=== PATIENT | female | born 2000 | race African-American/Black ===

== ENCOUNTER 2023-07-08 09:56 | Emergency (ER) | payer OTHER ==
[2023-07-08 11:01] LABS: SARS-CoV-2 NAA Rapid Test Not Detected (NotDetected)
== END 2023-07-08 11:25 | disposition home or self-care (01) ==
LOC: CSHERS 09:56
DX: J20.9 Acute bronchitis, unspecified (principal); Z20.822 Contact with and (suspected) exposure to COVID-19
CPT/HCPCS: 99283

== ENCOUNTER 2023-08-12 12:06 | Emergency (ER) | payer BC, OTHER ==
[~2023-08-12 12:06] MED LIST: Iopamidol 300 61% 100 ML VIAL FS ONE
[2023-08-12 13:11] LABS: #Eosinphils 0.1 10x3/uL (0.0-0.5); #Monocytes 0.7 10x3/uL (0.0-1.1); #Neutrophils 3.9 10x3/uL (1.5-8.4); %Basophils 0.2 % (0.0-2.0); %Eosinophils 1.6 % (0.0-6.0); %Lymphocytes 18.2 % (18.0-47.0); %Monocytes 11.4 % (0.0-10.0); %Neutrophils 68.4 % (40.0-75.0); Hematocrit 36.1 % (34.9-44.5); Hemoglobin 11.1 g/dL (12.0-15.5); Mean Corpuscular HGB CONC 30.7 g/dL (32.0-36.0); Mean Corpuscular Hemoglobin 25.9 pg (27.0-33.0); Mean Corpuscular Volume 84.1 fl (81.6-98.3); Mean Platelet Volume 12.1 fl (7.4-10.4); Platelet Count 240 10x3/uL (150-450); RBC Distribution Width 17.8 % (11.5-14.5); Red Blood Cell (RBC) Count 4.29 10x6/uL (3.90-5.03); White Blood Cell (WBC) Count 5.7 10x3/uL (3.5-10.5)
[2023-08-12 13:40] LABS: ALT (SGPT) 8 U/L (8-55); AST (SGOT) 12 U/L (5-34); Albumin 4.2 g/dL (3.5-5.0); Alkaline Phosphatase 55 U/L (40-110); Anion Gap 14 mmol/L (10-20); BUN (Urea Nitrogen) 13 mg/dL (7.0-18.7); Bilirubin, Total 0.5 mg/dL (0.2-1.2); Calc. Creatinine Clearance 0 mL/min (70-130); Calcium 9.3 mg/dL (7.8-10.44); Carbon Dioxide 24 mmol/L (22-29); Chloride 106 mmol/L (98-107); Estimated GFR 117; Globulin 3.1 g/dL (2.4-3.5); Glucose 91 mg/dL (70-105); Lipase 24 U/L (8-78); Potassium 3.5 mmol/L (3.5-5.1); Protein, Total 7.3 g/dL (6.0-8.3); Sodium 140 mmol/L (136-145)
[2023-08-12] MEDS ORDERED: Ketorolac Tromethamine 30 MG/ML VIAL ONE (13:41)
[2023-08-12] MEDS ORDERED: Ondansetron PF 4 MG/2 ML Vial ONE ×2 (13:41→21:23)
[2023-08-12 14:23] LABS: Bilirubin Neg (Negative); Blood, Urine Negative (Negative); Clarity Clear (Clear); Glucose, Urine (Dipstick) Normal (Negative); Ketone, Urine 50 mg/dL (Negative); Leukocyte Negative (Negative); Nitrite Negative (Negative); Protein, Urine (Dipstick) 15 mg/dl (Neg-Trace); Urobilinogen Normal mg/dL (Less than 2)
[2023-08-12 14:24] LABS: Pregnancy Test - Urine (BHCG) Negative (Negative); Pregu Control Background? CLEAR/WHITE (CLR/WHITE); Pregu Control Bar Appear? YES (CONTROL BAR)
[2023-08-12 15:36] LABS: Bacteria/HPF None Seen HPF (None Seen); CAUTI Indications for Culture Pelvic or flank pain; RBC/HPF None Seen HPF (0-3); Squamous Epithelial 0-3 HPF (0-3); WBC/HPF None Seen HPF (0-3)
[2023-08-12 15:37] LABS: Urine Culture Reflex No No
[2023-08-12] MEDS ORDERED: Morphine 2 MG/ML VIAL ONE (16:47)
[2023-08-12] MEDS ORDERED: Morphine 4 MG/ML VIAL ONE (20:10)
[2023-08-12 20:41] LABS: Hematocrit 32.8 % (34.9-44.5); Hemoglobin 10.2 g/dL (12.0-15.5)
== END 2023-08-12 21:25 | disposition home or self-care (01) ==
LOC: CSHERS 12:06
DX: N83.291 Other ovarian cyst, right side (principal)
CPT/HCPCS: 36415; 74177; 76856; 80053; 81001; 81025; 83690; 85025; 96374; 96375; 96376; J1885; J2270; J2272; J2405; Q9967

== ENCOUNTER 2023-08-15 04:57 | Inpatient (IN) | payer BC, OTHER ==
[2023-08-15] MEDS ORDERED: Morphine 4 MG/ML VIAL ONE (06:08)
[2023-08-15] MEDS ORDERED: Ondansetron PF 4 MG/2 ML Vial ONE (06:09)
[2023-08-15 06:26] LABS: #Eosinphils 0.1 10x3/uL (0.0-0.5); #Monocytes 0.6 10x3/uL (0.0-1.1); #Neutrophils 4.7 10x3/uL (1.5-8.4); %Basophils 0.3 % (0.0-2.0); %Eosinophils 1.9 % (0.0-6.0); %Lymphocytes 23.7 % (18.0-47.0); %Monocytes 7.9 % (0.0-10.0); %Neutrophils 66.1 % (40.0-75.0); Hematocrit 33.6 % (34.9-44.5); Hemoglobin 10.5 g/dL (12.0-15.5); Mean Corpuscular HGB CONC 31.3 g/dL (32.0-36.0); Mean Corpuscular Hemoglobin 25.7 pg (27.0-33.0); Mean Corpuscular Volume 82.4 fl (81.6-98.3); Mean Platelet Volume 11.9 fl (7.4-10.4); Platelet Count 238 10x3/uL (150-450); RBC Distribution Width 17.2 % (11.5-14.5); Red Blood Cell (RBC) Count 4.08 10x6/uL (3.90-5.03); White Blood Cell (WBC) Count 7.2 10x3/uL (3.5-10.5)
[2023-08-15 06:30] LABS: ALT (SGPT) 9 U/L (8-55); AST (SGOT) 11 U/L (5-34); Alkaline Phosphatase 51 U/L (40-110); Anion Gap 14 mmol/L (10-20); BUN (Urea Nitrogen) 11 mg/dL (7.0-18.7); Bilirubin, Total 0.3 mg/dL (0.2-1.2); Calc. Creatinine Clearance 0 mL/min (70-130); Calcium 9.3 mg/dL (7.8-10.44); Carbon Dioxide 24 mmol/L (22-29); Chloride 106 mmol/L (98-107); Estimated GFR 117; Glucose 110 mg/dL (70-105); Lipase 18 U/L (8-78); Potassium 3.8 mmol/L (3.5-5.1); Sodium 140 mmol/L (136-145)
[2023-08-15] MEDS ORDERED: Famotidine/PF 20 mg/2ml Vial ONE (07:11)
[2023-08-15] MEDS ORDERED: Ketorolac Tromethamine 30 MG/ML VIAL ONE (07:11)
[2023-08-15] MEDS ORDERED: Lidocaine 2% Viscous Solution 10 ML, Aluminum & Magnesium Hydroxide 30 ML SSW SCH (08:00)
[2023-08-15] MEDS ORDERED: fentaNYL 50 mcg/mL 1 mL Vial ONE ×2 (08:51→12:00)
[2023-08-15 09:20] LABS: BHCG - Serum Negative (NEGATIVE); Pregs Control Background? CLEAR/WHITE (CLR/WHITE); Pregs Control Bar Appear? YES (CONTROL BAR)
[2023-08-15] MEDS ORDERED: Iopamidol 300 61% 100 ML VIAL FS ONE (10:42)
[2023-08-15 12:09] LABS: Bilirubin Neg (Negative); Blood, Urine Negative (Negative); Glucose, Urine (Dipstick) Normal (Negative); Ketone, Urine 5 mg/dL (Negative); Leukocyte 25 (Negative); Nitrite Negative (Negative); Protein, Urine (Dipstick) 15 mg/dl (Neg-Trace); Urobilinogen Normal mg/dL (Less than 2)
[2023-08-15 12:19] LABS: Amphetamine Not Detected (NotDetected); Barbiturates Screen Not Detected (NotDetected); Benzodiazepine Screen Not Detected (NotDetected); Clarity Clear (Clear); Cocaine Metabolite Screen Not Detected (NotDetected); Methadone Not Detected (NotDetected); Methamphetamine Not Detected (NotDetected); Opiate Screen Detected (NotDetected); Oxycodone Screen Not Detected (NotDetected); Phencyclidine (PCP) Not Detected (NotDetected); THC/Cannabinoid Screen Detected (NotDetected); Tricyclic Screen Not Detected (NotDetected)
[2023-08-15 12:20] LABS: Bacteria/HPF None Seen HPF (None Seen); CAUTI Indications for Culture Pelvic or flank pain; RBC/HPF None Seen HPF (0-3); WBC/HPF None Seen HPF (0-3)
[2023-08-15 12:22] LABS: Urine Culture Reflex No No
[2023-08-15] MEDS ORDERED: Calcium Carbonate 500 MG ChewTAB PO PRN (12:52)
[2023-08-15] MEDS ORDERED: Acetaminophen 325 MG TAB PO PRN (12:52)
[2023-08-15 16:10] VITALS: BMI 30.2
[2023-08-15] MEDS ORDERED: Pantoprazole 40 MG VIAL IVP SCH (16:15)
[2023-08-15] MEDS ORDERED: FLU VACC QS2023-24(6MOS UP)/PF 60 MCG/0.5 ML SYRINGE IM ONE (16:15)
[2023-08-15] MEDS: Sodium Chloride 0.9% 1,000 ML IV SCH ×2 (17:33→23:46)
[2023-08-15] MEDS: traMADol HCl 50 MG TAB PO PRN (18:44)
[2023-08-15] MEDS: Ondansetron PF 4 MG/2 ML Vial IVP PRN (21:32)
[2023-08-15] MEDS: Pantoprazole 40 MG VIAL IVP SCH (21:32)
[2023-08-15] MEDS: Morphine 2 MG/ML VIAL SLOW IVP PRN (22:43)
[2023-08-16] MEDS: traMADol HCl 50 MG TAB PO PRN (03:42)
[2023-08-16] MEDS: Sodium Chloride 0.9% 1,000 ML IV SCH ×3 (03:43→20:02)
[2023-08-16] MEDS: Morphine 2 MG/ML VIAL SLOW IVP PRN ×2 (04:58→11:03)
[2023-08-16 05:30] LABS: Anion Gap 14 mmol/L (10-20); BUN (Urea Nitrogen) 7 mg/dL (7.0-18.7); Calc. Creatinine Clearance 177 mL/min (70-130); Calcium 8.4 mg/dL (7.8-10.44); Carbon Dioxide 21 mmol/L (22-29); Chloride 110 mmol/L (98-107); Estimated GFR 126; Glucose 88 mg/dL (70-105); Hematocrit 29.9 % (34.9-44.5); Hemoglobin 9.2 g/dL (12.0-15.5); Mean Corpuscular HGB CONC 30.8 g/dL (32.0-36.0); Mean Corpuscular Hemoglobin 25.7 pg (27.0-33.0); Mean Corpuscular Volume 83.5 fl (81.6-98.3); Mean Platelet Volume 12.3 fl (7.4-10.4); Platelet Count 192 10x3/uL (150-450); Potassium 3.6 mmol/L (3.5-5.1); RBC Distribution Width 17.3 % (11.5-14.5); Red Blood Cell (RBC) Count 3.58 10x6/uL (3.90-5.03); Sodium 141 mmol/L (136-145); White Blood Cell (WBC) Count 5.3 10x3/uL (3.5-10.5)
[2023-08-16 06:05] LABS: MDiff Complete? YES
[2023-08-16 06:12] LABS: Band 1 % (5-11); Eosinophils 2 % (0-10); Lymphocytes 54 % (21-51); Monocytes 9 % (0-10); Neutrophil 26 % (42-75); Reactive Lymphocytes 8 % (0-10)
[2023-08-16 06:14] LABS: Elliptocytes SLIGHT = 2-5 cells (100X) (0-1/hpf); Hypochromia SLIGHT = 6-15 cells (100X) (0-5/hpf)
[2023-08-16 06:16] LABS: Platelet Adequacy Comment Appears Adequate; Platelet Clumps SLIGHT; Tear Drops SLIGHT = 2-5 cells (100X) (0-1/hpf)
[2023-08-16] MEDS: Pantoprazole 40 MG VIAL IVP SCH ×2 (08:54→20:06)
[2023-08-16] MEDS: Ondansetron PF 4 MG/2 ML Vial IVP PRN ×2 (08:54→23:38)
[2023-08-16] MEDS ORDERED: Ketorolac Tromethamine 30 MG/ML VIAL IVP SCH (13:00)
[2023-08-16] MEDS: Morphine 4 MG/ML VIAL SLOW IVP PRN ×2 (17:08→23:38)
[2023-08-16] MEDS: Ketorolac Tromethamine 30 MG/ML VIAL IVP PRN (20:38)
[2023-08-16] MEDS ORDERED: Melatonin 3 MG TAB PO PRN (23:31)
[2023-08-17] MEDS: Sodium Chloride 0.9% 1,000 ML IV SCH ×2 (03:05→08:35)
[2023-08-17] MEDS: Morphine 4 MG/ML VIAL SLOW IVP PRN (05:53)
[2023-08-17 06:47] LABS: Anion Gap 12 mmol/L (10-20); BUN (Urea Nitrogen) 5 mg/dL (7.0-18.7); Calc. Creatinine Clearance 185 mL/min (70-130); Calcium 8.4 mg/dL (7.8-10.44); Carbon Dioxide 21 mmol/L (22-29); Chloride 108 mmol/L (98-107); Estimated GFR 127; Glucose 91 mg/dL (70-105); Potassium 3.6 mmol/L (3.5-5.1); Sodium 137 mmol/L (136-145)
[2023-08-17 07:03] LABS: #Eosinphils 0.2 10x3/uL (0.0-0.5); #Monocytes 0.6 10x3/uL (0.0-1.1); #Neutrophils 1.6 10x3/uL (1.5-8.4); %Basophils 0.8 % (0.0-2.0); %Eosinophils 3.4 % (0.0-6.0); %Lymphocytes 53.6 % (18.0-47.0); %Monocytes 10.7 % (0.0-10.0); %Neutrophils 31.3 % (40.0-75.0); Hematocrit 29.3 % (34.9-44.5); Mean Corpuscular HGB CONC 30.7 g/dL (32.0-36.0); Mean Corpuscular Hemoglobin 25.5 pg (27.0-33.0); Mean Platelet Volume 11.9 fl (7.4-10.4); Platelet Count 188 10x3/uL (150-450); RBC Distribution Width 16.9 % (11.5-14.5); Red Blood Cell (RBC) Count 3.53 10x6/uL (3.90-5.03); White Blood Cell (WBC) Count 5.2 10x3/uL (3.5-10.5)
[2023-08-17 08:24] VITALS: BP 118/62; TEMP 98.6
[2023-08-17] MEDS: Ketorolac Tromethamine 30 MG/ML VIAL IVP PRN (08:34)
[2023-08-17] MEDS: Pantoprazole 40 MG VIAL IVP SCH (08:35)
== END 2023-08-17 10:28 | disposition home or self-care (01) | DRG 391 ==
LOC: CSHERS 04:57 → CSHTELE 12:52 → OBSVTOIN 08-16 10:10
PROVIDERS: ADMIT Internal Medicine; ATTEND Internal Medicine
DX: R11.2 Nausea with vomiting, unspecified (principal); K85.90 Acute pancreatitis without necrosis or infection, unspecified; D62 Acute posthemorrhagic anemia; N83.201 Unspecified ovarian cyst, right side; R10.84 Generalized abdominal pain; F10.90 Alcohol use, unspecified, uncomplicated; F12.90 Cannabis use, unspecified, uncomplicated; Z88.1 Allergy status to other antibiotic agents; Z80.3 Family history of malignant neoplasm of breast
CPT/HCPCS: 36415; 74177; 76856; 80048; 80053; 80306; 81001; 83690; 84703; 85025; 90471; 90686; 96361; 96374; 96375; C9113; G0008; J1885; J2270; J2272; J2405; J3010; J7050; Q9967; S0028

== ENCOUNTER 2023-09-10 08:38 | Emergency (ER) | payer BC, MEDICAID ==
[2023-09-10 09:44] LABS: Amphetamine Not Detected (NotDetected); Barbiturates Screen Not Detected (NotDetected); Benzodiazepine Screen Not Detected (NotDetected); Cocaine Metabolite Screen Not Detected (NotDetected); Methadone Not Detected (NotDetected); Methamphetamine Not Detected (NotDetected); Opiate Screen Not Detected (NotDetected); Oxycodone Screen Not Detected (NotDetected); Phencyclidine (PCP) Not Detected (NotDetected); THC/Cannabinoid Screen Detected (NotDetected); Tricyclic Screen Not Detected (NotDetected)
[2023-09-10 10:29] LABS: Pregnancy Test - Urine (BHCG) Negative (Negative); Pregu Control Background? CLEAR/WHITE (CLR/WHITE); Pregu Control Bar Appear? YES (CONTROL BAR)
[2023-09-10 10:38] LABS: #Monocytes 0.5 10x3/uL (0.0-1.1); #Neutrophils 1.5 10x3/uL (1.5-8.4); %Basophils 0.7 % (0.0-2.0); %Lymphocytes 49.8 % (18.0-47.0); %Neutrophils 37.3 % (40.0-75.0); Hematocrit 31.8 % (34.9-44.5); Hemoglobin 9.7 g/dL (12.0-15.5); Mean Corpuscular HGB CONC 30.5 g/dL (32.0-36.0); Mean Corpuscular Hemoglobin 25.3 pg (27.0-33.0); Platelet Count 250 10x3/uL (150-450); RBC Distribution Width 16.1 % (11.5-14.5); Red Blood Cell (RBC) Count 3.83 10x6/uL (3.90-5.03); White Blood Cell (WBC) Count 4.1 10x3/uL (3.5-10.5)
[2023-09-10 10:53] LABS: ALT (SGPT) 11 U/L (8-55); AST (SGOT) 12 U/L (5-34); Albumin 3.8 g/dL (3.5-5.0); Alkaline Phosphatase 50 U/L (40-110); Anion Gap 11 mmol/L (10-20); BUN (Urea Nitrogen) 9 mg/dL (7.0-18.7); Bilirubin, Total 0.3 mg/dL (0.2-1.2); Calc. Creatinine Clearance 0 mL/min (70-130); Calcium 8.9 mg/dL (7.8-10.44); Carbon Dioxide 24 mmol/L (22-29); Chloride 109 mmol/L (98-107); Estimated GFR 125; Globulin 2.8 g/dL (2.4-3.5); Glucose 93 mg/dL (70-105); Lipase 20 U/L (8-78); Potassium 3.7 mmol/L (3.5-5.1); Protein, Total 6.6 g/dL (6.0-8.3); Sodium 140 mmol/L (136-145)
[2023-09-10] MEDS ORDERED: Pantoprazole 40 MG VIAL ONE (11:27)
[2023-09-10] MEDS ORDERED: Haloperidol Lactate 5 MG/ML VIAL ONE (11:27)
== END 2023-09-10 12:56 | disposition home or self-care (01) ==
LOC: CSHERS 08:38
DX: F12.188 Cannabis abuse with other cannabis-induced disorder (principal)
CPT/HCPCS: 36415; 80053; 80306; 81025; 83605; 83690; 85025; 93005; 96374; 96375; C9113; J1630

== ENCOUNTER 2023-09-14 22:25 | Emergency (ER) | payer BC, MEDICAID ==
[2023-09-14] MEDS ORDERED: Haloperidol Lactate 5 MG/ML VIAL ONE (22:45)
[2023-09-14 22:52] LABS: #Eosinphils 0.1 10x3/uL (0.0-0.5); #Monocytes 0.5 10x3/uL (0.0-1.1); #Neutrophils 3.6 10x3/uL (1.5-8.4); %Basophils 0.4 % (0.0-2.0); %Eosinophils 0.8 % (0.0-6.0); %Lymphocytes 42.6 % (18.0-47.0); %Monocytes 7.1 % (0.0-10.0); %Neutrophils 48.8 % (40.0-75.0); Hematocrit 35.6 % (34.9-44.5); Hemoglobin 11.1 g/dL (12.0-15.5); Mean Corpuscular HGB CONC 31.2 g/dL (32.0-36.0); Mean Corpuscular Hemoglobin 25.9 pg (27.0-33.0); Mean Platelet Volume 11.9 fl (7.4-10.4); Platelet Count 294 10x3/uL (150-450); RBC Distribution Width 16.4 % (11.5-14.5); Red Blood Cell (RBC) Count 4.29 10x6/uL (3.90-5.03); White Blood Cell (WBC) Count 7.3 10x3/uL (3.5-10.5)
[2023-09-14 23:02] LABS: BHCG - Serum Negative (NEGATIVE); Pregs Control Background? CLEAR/WHITE (CLR/WHITE); Pregs Control Bar Appear? YES (CONTROL BAR)
[2023-09-14 23:08] LABS: ALT (SGPT) 10 U/L (8-55); AST (SGOT) 17 U/L (5-34); Albumin 4.3 g/dL (3.5-5.0); Alkaline Phosphatase 57 U/L (40-110); Anion Gap 18 mmol/L (10-20); BUN (Urea Nitrogen) 12 mg/dL (7.0-18.7); Bilirubin, Total 0.3 mg/dL (0.2-1.2); Calc. Creatinine Clearance 0 mL/min (70-130); Calcium 9.6 mg/dL (7.8-10.44); Carbon Dioxide 18 mmol/L (22-29); Chloride 106 mmol/L (98-107); Estimated GFR 105; Globulin 3.6 g/dL (2.4-3.5); Glucose 94 mg/dL (70-105); Potassium 3.6 mmol/L (3.5-5.1); Protein, Total 7.9 g/dL (6.0-8.3); Sodium 138 mmol/L (136-145)
[2023-09-14 23:13] LABS: Acetaminophen Less than 10 mcg/mL (10.0-30.0); Alcohol Less than 10.0 mg/dL (Less than 10); Lipase 30 U/L (8-78); Magnesium 1.8 mg/dL (1.6-2.6); Salicylate Less than 8.0 mg/dL (15.0-30.0)
[2023-09-14 23:16] LABS: Bilirubin Neg (Negative); Blood, Urine Negative (Negative); Clarity Slightly Cloudy (Clear); Glucose, Urine (Dipstick) Normal (Negative); Ketone, Urine 15 mg/dL (Negative); Leukocyte 100 (Negative); Nitrite Negative (Negative); Protein, Urine (Dipstick) 15 mg/dl (Neg-Trace); Specific Gravity, Urine 1.015 (1.005-1.030); Urobilinogen Normal mg/dL (Less than 2); pH, Urine 6.5 (5.0-9.0)
[2023-09-14 23:25] LABS: Amphetamine Not Detected (NotDetected); Barbiturates Screen Not Detected (NotDetected); Benzodiazepine Screen Not Detected (NotDetected); Cocaine Metabolite Screen Not Detected (NotDetected); Methadone Not Detected (NotDetected); Methamphetamine Not Detected (NotDetected); Opiate Screen Not Detected (NotDetected); Oxycodone Screen Not Detected (NotDetected); Phencyclidine (PCP) Not Detected (NotDetected); THC/Cannabinoid Screen Detected (NotDetected); Tricyclic Screen Not Detected (NotDetected)
[2023-09-14 23:28] LABS: CAUTI Indications for Culture Dysuria,urgency,freq; RBC/HPF 0-3 HPF (0-3)
[2023-09-14 23:31] LABS: Bacteria/HPF None Seen HPF (None Seen)
[2023-09-14 23:32] LABS: Urine Culture Reflex No No
== END 2023-09-14 23:50 | disposition home or self-care (01) ==
LOC: CSHERS 22:25
DX: R11.2 Nausea with vomiting, unspecified (principal)
CPT/HCPCS: 80053; 80306; 80307; 81001; 83690; 83735; 84703; 85025; 96361; 96374; J1630

== ENCOUNTER 2023-10-10 11:35 | Emergency (ER) | payer BC, MEDICAID ==
[2023-10-10] MEDS ORDERED: Ketorolac Tromethamine 30 MG/ML VIAL ONE (12:50)
[2023-10-10] MEDS ORDERED: Acetaminophen 500 MG TAB ONE (12:50)
[2023-10-10 13:46] LABS: SARS-CoV-2 NAA Rapid Test Not Detected (NotDetected)
== END 2023-10-10 13:02 | disposition home or self-care (01) ==
LOC: CSHERS 11:35
DX: J10.1 Influenza due to other identified influenza virus with other respiratory manifestations (principal); J01.90 Acute sinusitis, unspecified; B96.89 Other specified bacterial agents as the cause of diseases classified elsewhere; Z20.822 Contact with and (suspected) exposure to COVID-19
CPT/HCPCS: 96372; 99283; J1885

== ENCOUNTER 2023-11-24 11:22 | Emergency (ER) | payer BC, MEDICAID ==
[2023-11-24] MEDS ORDERED: Dicyclomine 20 MG/2 ML VIAL ONE (12:10)
[2023-11-24] MEDS ORDERED: Famotidine/PF 20 mg/2ml Vial ONE ×2 (12:10→12:17)
[2023-11-24] MEDS ORDERED: Lidocaine 2% Viscous 10 mL, Alum & Magn 30 mL SSW SCH (12:15)
[2023-11-24 12:43] LABS: BHCG - Serum Negative (NEGATIVE); Pregs Control Background? CLEAR/WHITE (CLR/WHITE); Pregs Control Bar Appear? YES (CONTROL BAR)
[2023-11-24 12:44] LABS: #Eosinphils 0.1 10x3/uL (0.0-0.5); #Monocytes 0.3 10x3/uL (0.0-1.1); #Neutrophils 1.9 10x3/uL (1.5-8.4); %Basophils 0.7 % (0.0-2.0); %Eosinophils 1.1 % (0.0-6.0); %Lymphocytes 47.9 % (18.0-47.0); %Monocytes 7.4 % (0.0-10.0); %Neutrophils 42.5 % (40.0-75.0); Hematocrit 35.7 % (34.9-44.5); Hemoglobin 11.2 g/dL (12.0-15.5); Mean Corpuscular HGB CONC 31.4 g/dL (32.0-36.0); Mean Corpuscular Hemoglobin 25.4 pg (27.0-33.0); RBC Distribution Width 18.6 % (11.5-14.5); Red Blood Cell (RBC) Count 4.41 10x6/uL (3.90-5.03); White Blood Cell (WBC) Count 4.5 10x3/uL (3.5-10.5)
[2023-11-24 12:45] LABS: Platelet Count 286 10x3/uL (150-450)
[2023-11-24 13:05] LABS: Bilirubin Neg (Negative); Blood, Urine 250 (Negative); Glucose, Urine (Dipstick) Normal (Negative); Ketone, Urine Negative (Negative); Leukocyte 100 (Negative); Nitrite Negative (Negative); Protein, Urine (Dipstick) 30 mg/dl (Neg-Trace); Specific Gravity, Urine 1.025 (1.005-1.030); Urobilinogen Normal mg/dL (Less than 2)
[2023-11-24 13:12] LABS: Amphetamine Not Detected (NotDetected); Barbiturates Screen Not Detected (NotDetected); Benzodiazepine Screen Not Detected (NotDetected); Cocaine Metabolite Screen Not Detected (NotDetected); Methadone Not Detected (NotDetected); Methamphetamine Not Detected (NotDetected); Opiate Screen Not Detected (NotDetected); Oxycodone Screen Not Detected (NotDetected); Phencyclidine (PCP) Not Detected (NotDetected); THC/Cannabinoid Screen Detected (NotDetected); Tricyclic Screen Not Detected (NotDetected)
[2023-11-24 13:19] LABS: Acetaminophen Less than 10 mcg/mL (10.0-30.0); Alcohol Less than 10.0 mg/dL (Less than 10); Lipase 37 U/L (8-78); Magnesium 1.7 mg/dL (1.6-2.6); Salicylate Less than 8.0 mg/dL (15.0-30.0)
[2023-11-24 13:21] LABS: ALT (SGPT) 9 U/L (8-55); AST (SGOT) 11 U/L (5-34); Albumin 4.6 g/dL (3.5-5.0); Alkaline Phosphatase 63 U/L (40-110); Anion Gap 16 mmol/L (10-20); BUN (Urea Nitrogen) 10 mg/dL (7.0-18.7); Bilirubin, Total 0.5 mg/dL (0.2-1.2); Calc. Creatinine Clearance 0 mL/min (70-130); Calcium 9.9 mg/dL (7.8-10.44); Carbon Dioxide 21 mmol/L (22-29); Chloride 108 mmol/L (98-107); Estimated GFR 115; Globulin 3.4 g/dL (2.4-3.5); Glucose 95 mg/dL (70-105); Potassium 4.3 mmol/L (3.5-5.1); Sodium 141 mmol/L (136-145)
[2023-11-24 13:39] LABS: Bacteria/HPF Rare-Few HPF (None Seen); CAUTI Indications for Culture Pelvic or flank pain; Clarity Hazy (Clear)
[2023-11-24 13:40] LABS: Mucous/LPF 2+ LPF (<2+); Urine Culture Reflex No No
== END 2023-11-24 14:17 | disposition home or self-care (01) ==
LOC: CSHERS 11:22
DX: R10.13 Epigastric pain (principal)
CPT/HCPCS: 36415; 74177; 80053; 80306; 80307; 81001; 83690; 83735; 84703; 85025; 96372; 96374; Q9967; S0028

== ENCOUNTER 2023-12-26 23:58 | Emergency (ER) | payer BC ==
[2023-12-27 21:07] LABS: Chlam.trachomatis by PCR,Urine Not Detected (NotDetected); GC N.gonorrhoeae PCR,UrineVOID Not Detected (NotDetected)
== END 2023-12-27 01:19 | disposition home or self-care (01) ==
LOC: CSHERS 23:58
DX: Z20.2 Contact with and (suspected) exposure to infections with a predominantly sexual mode of transmission (principal); F17.290 Nicotine dependence, other tobacco product, uncomplicated
CPT/HCPCS: 87480; 87491; 87510; 87591; 87660; 99283

== ENCOUNTER 2024-03-23 08:57 | Emergency (ER) | payer SELFPAY ==
[2024-03-23] MEDS ORDERED: Ketorolac Tromethamine 30 MG (1 mL) VIAL ONE (09:21)
[2024-03-23] MEDS ORDERED: Ondansetron PF 4 MG/2 ML Vial ONE (09:21)
[2024-03-23 09:43] LABS: #Basophils 0.03 10x3/uL (0.0-0.2); #Eosinphils 0.06 10x3/uL (0.0-0.5); #Monocytes 0.57 10x3/uL (0.0-1.1); #Neutrophils 4.36 10x3/uL (1.5-8.4); %Basophils 0.4 % (0.0-2.0); %Eosinophils 0.8 % (0.0-6.0); %Lymphocytes 29.5 % (18.0-47.0); %Neutrophils 61.2 % (40.0-75.0); Hematocrit 31.9 % (34.9-44.5); Mean Corpuscular HGB CONC 31.3 g/dL (32.0-36.0); Mean Corpuscular Hemoglobin 26.7 pg (27.0-33.0); Mean Corpuscular Volume 85.1 fl (81.6-98.3); Mean Platelet Volume 11.9 fl (7.4-10.4); Platelet Count 284 10x3/uL (150-450); RBC Distribution Width 15.5 % (11.5-14.5); Red Blood Cell (RBC) Count 3.75 10x6/uL (3.90-5.03); White Blood Cell (WBC) Count 7.1 10x3/uL (3.5-10.5)
[2024-03-23 09:49] LABS: ALT (SGPT) Less than 7 U/L (8-55); AST (SGOT) 12 U/L (5-34); Albumin 3.6 g/dL (3.5-5.0); Alkaline Phosphatase 61 U/L (40-110); Anion Gap 13 mmol/L (10-20); BUN (Urea Nitrogen) 14 mg/dL (7.0-18.7); Bilirubin, Total 0.5 mg/dL (0.2-1.2); Calc. Creatinine Clearance 0 mL/min (70-130); Calcium 9.2 mg/dL (7.8-10.44); Carbon Dioxide 22 mmol/L (22-29); Chloride 107 mmol/L (98-107); Estimated GFR 126; Globulin 3.4 g/dL (2.4-3.5); Glucose 95 mg/dL (70-105); Lipase 24 U/L (8-78); Potassium 3.8 mmol/L (3.5-5.1); Sodium 138 mmol/L (136-145)
[2024-03-23 09:53] LABS: BHCG - Serum Negative (NEGATIVE); Pregs Control Background? CLEAR/WHITE (CLR/WHITE); Pregs Control Bar Appear? YES (CONTROL BAR)
== END 2024-03-23 10:57 | disposition home or self-care (01) ==
LOC: CSHERS 08:57
DX: R10.11 Right upper quadrant pain (principal); F17.290 Nicotine dependence, other tobacco product, uncomplicated
CPT/HCPCS: 76705; 80053; 83690; 84703; 85025; 96374; 96375; J1885; J2405

== ENCOUNTER 2024-04-01 11:20 | Emergency (ER) | payer SELFPAY ==
[2024-04-01 12:28] LABS: Influenza A by NAA Not Detected (NotDetected); Influenza B by NAA Not Detected (NotDetected); SARS-CoV-2 NAA Rapid Test Not Detected (NotDetected)
[2024-04-01] MEDS ORDERED: Ketorolac Tromethamine 30 MG (1 mL) VIAL ONE (12:39)
== END 2024-04-01 13:03 | disposition home or self-care (01) ==
LOC: CSHERS 11:20
DX: J06.9 Acute upper respiratory infection, unspecified (principal); F17.290 Nicotine dependence, other tobacco product, uncomplicated
CPT/HCPCS: 87081; 87430; 96372; 99283; J1885

== ENCOUNTER 2024-07-24 16:33 | Emergency (ER) | payer OTHER ==
[2024-07-24 17:53] LABS: Bilirubin Neg (Negative); Blood, Urine Negative (Negative); Clarity Slightly Cloudy (Clear); Glucose, Urine (Dipstick) Normal (Negative); Ketone, Urine Negative (Negative); Leukocyte 25 (Negative); Nitrite Negative (Negative); Protein, Urine (Dipstick) 15 mg/dl (Neg-Trace); Urobilinogen Normal mg/dL (Less than 2); pH, Urine 6.5 (5.0-9.0)
[2024-07-24 17:54] LABS: Pregnancy Test - Urine (BHCG) Negative (Negative); Pregu Control Background? CLEAR/WHITE (CLR/WHITE); Pregu Control Bar Appear? YES (CONTROL BAR)
[2024-07-24 18:15] LABS: Bacteria/HPF 2+ HPF (None Seen); CAUTI Indications for Culture Pelvic or flank pain; RBC/HPF 0-3 HPF (0-3); WBC/HPF 0-3 HPF (0-3)
[2024-07-24 18:17] LABS: Mucous/LPF 2+ LPF (<2+)
[2024-07-24 18:18] LABS: Urine Culture Reflex No No
== END 2024-07-24 19:20 | disposition home or self-care (01) ==
LOC: CSHERS 16:33
DX: K59.00 Constipation, unspecified (principal); F17.290 Nicotine dependence, other tobacco product, uncomplicated; Z55.6 Problems related to health literacy
CPT/HCPCS: 76856; 81001; 81025

== ENCOUNTER 2025-09-05 07:29 | Emergency (ER) | payer OTHER ==
[2025-09-05] MEDS ORDERED: Droperidol 5 MG/2 ML VIAL ONE (08:04)
[2025-09-05 08:07] LABS: #Basophils 0.04 10x3/uL (0.0-0.2); #Eosinophils 0.12 10x3/uL (0.0-0.5); #Monocytes 0.85 10x3/uL (0.0-1.1); #Neutrophils 1.85 10x3/uL (1.5-8.4); %Basophils 0.9 % (0.0-2.0); %Eosinophils 2.8 % (0.0-6.0); %Lymphocytes 33.1 % (18.0-47.0); %Monocytes 19.8 % (0.0-10.0); %Neutrophils 43.2 % (40.0-75.0); Hematocrit 36.2 % (34.9-44.5); Hemoglobin 11.5 g/dL (12.0-15.5); Mean Corpuscular Hemoglobin 26.6 pg (27.0-33.0); Mean Corpuscular Volume 83.6 fL (81.6-98.3); Platelet Count 263 10x3/uL (150-450); Red Blood Cell (RBC) Count 4.33 10x6/uL (3.90-5.03); White Blood Cell (WBC) Count 4.29 10x3/uL (3.5-10.5)
[2025-09-05 08:19] LABS: BHCG - Serum Negative (NEGATIVE); Pregs Control Background? CLEAR/WHITE (CLR/WHITE); Pregs Control Bar Appear? YES (CONTROL BAR)
[2025-09-05 08:25] LABS: ALT (SGPT) 11 U/L (Less than 34); AST (SGOT) 25 U/L (11-34); Albumin 3.8 g/dL (3.1-4.5); Alkaline Phosphatase 64 U/L (40-110); Anion Gap 17 mmol/L (10-20); BUN (Urea Nitrogen) 10 mg/dL (7.0-18.7); Bilirubin, Total 0.3 mg/dL (0.3-1.2); Calc. Creatinine Clearance 0 mL/min (70-130); Calcium 9.3 mg/dL (7.8-10.44); Carbon Dioxide 18 mmol/L (22-29); Chloride 108 mmol/L (98-107); Globulin 3.8 g/dL (2.4-3.5); Glucose 95 mg/dL (70-105); Lipase 25 U/L (8-78); Potassium 3.4 mmol/L (3.5-5.1); Sodium 140 mmol/L (136-145)
== END 2025-09-05 08:50 | disposition home or self-care (01) ==
LOC: CSHERS 07:29
DX: R10.13 Epigastric pain (principal); R50.9 Fever, unspecified; R11.2 Nausea with vomiting, unspecified; R19.7 Diarrhea, unspecified; Z53.29 Procedure and treatment not carried out because of patient's decision for other reasons; F17.290 Nicotine dependence, other tobacco product, uncomplicated
CPT/HCPCS: 36415; 76705; 80053; 83605; 83690; 84703; 85025; 96374; J1790

== ENCOUNTER 2025-09-10 09:43 | Emergency (ER) | payer OTHER ==
[2025-09-10 10:42] LABS: #Basophils 0.03 10x3/uL (0.0-0.2); #Eosinophils 0.16 10x3/uL (0.0-0.5); #Monocytes 0.47 10x3/uL (0.0-1.1); #Neutrophils 1.86 10x3/uL (1.5-8.4); %Basophils 0.6 % (0.0-2.0); %Eosinophils 3.3 % (0.0-6.0); %Lymphocytes 47.8 % (18.0-47.0); %Monocytes 9.7 % (0.0-10.0); %Neutrophils 38.4 % (40.0-75.0); Hematocrit 34.2 % (34.9-44.5); Hemoglobin 10.9 g/dL (12.0-15.5); Mean Corpuscular Hemoglobin 26.5 pg (27.0-33.0); Mean Corpuscular Volume 83.0 fL (81.6-98.3); Platelet Count 291 10x3/uL (150-450); Red Blood Cell (RBC) Count 4.12 10x6/uL (3.90-5.03); White Blood Cell (WBC) Count 4.85 10x3/uL (3.5-10.5)
[2025-09-10 10:56] LABS: BHCG - Serum Negative (NEGATIVE); Pregs Control Background? CLEAR/WHITE (CLR/WHITE); Pregs Control Bar Appear? YES (CONTROL BAR)
[2025-09-10 11:02] LABS: ALT (SGPT) 15 U/L (Less than 34); AST (SGOT) 17 U/L (11-34); Albumin 3.7 g/dL (3.1-4.5); Alkaline Phosphatase 56 U/L (40-110); Anion Gap 12 mmol/L (10-20); BUN (Urea Nitrogen) 5 mg/dL (7.0-18.7); Bilirubin, Total 0.4 mg/dL (0.3-1.2); Calc. Creatinine Clearance 0 mL/min (70-130); Calcium 8.5 mg/dL (7.8-10.44); Carbon Dioxide 22 mmol/L (22-29); Chloride 111 mmol/L (98-107); Globulin 3.3 g/dL (2.4-3.5); Glucose 90 mg/dL (70-105); Potassium 3.4 mmol/L (3.5-5.1); Sodium 142 mmol/L (136-145)
[2025-09-10 11:54] LABS: Glucose, Urine (Dipstick) Normal (Negative); Leukocyte 25 (Negative); Protein, Urine (Dipstick) 15 mg/dl (Neg-Trace); Specific Gravity, Urine 1.015 (1.005-1.030)
[2025-09-10 12:09] LABS: Bacteria/HPF 3+ HPF (None Seen); CAUTI Indications for Culture Pelvic or flank pain; Mucous/LPF 1+ LPF (<2+); RBC/HPF 0-3 HPF (0-3); Urine Culture Reflex No No; WBC/HPF 0-3 HPF (0-3)
== END 2025-09-10 15:35 | disposition home or self-care (01) ==
LOC: CSHERS 09:43
DX: I88.0 Nonspecific mesenteric lymphadenitis (principal); F17.290 Nicotine dependence, other tobacco product, uncomplicated
CPT/HCPCS: 71275; 74177; 80053; 81001; 83690; 84703; 85025; 85379; 93005; 96361; 96374; J2272

== ENCOUNTER 2025-09-13 05:53 | Emergency (ER) | payer OTHER ==
[2025-09-13 06:38] LABS: #Basophils Less than 0.03 10x3/uL (0.0-0.2); #Eosinophils 0.25 10x3/uL (0.0-0.5); #Monocytes 0.67 10x3/uL (0.0-1.1); #Neutrophils 2.59 10x3/uL (1.5-8.4); %Basophils 0.3 % (0.0-2.0); %Eosinophils 4.0 % (0.0-6.0); %Lymphocytes 43.5 % (18.0-47.0); %Monocytes 10.7 % (0.0-10.0); %Neutrophils 41.2 % (40.0-75.0); Hematocrit 35.6 % (34.9-44.5); Hemoglobin 11.3 g/dL (12.0-15.5); Mean Corpuscular Hemoglobin 26.4 pg (27.0-33.0); Mean Corpuscular Volume 83.2 fL (81.6-98.3); Platelet Count 366 10x3/uL (150-450); Red Blood Cell (RBC) Count 4.28 10x6/uL (3.90-5.03); White Blood Cell (WBC) Count 6.28 10x3/uL (3.5-10.5)
[2025-09-13 06:59] LABS: AST (SGOT) 22 U/L (11-34); Albumin 3.9 g/dL (3.1-4.5); Alkaline Phosphatase 60 U/L (40-110); Anion Gap 13 mmol/L (10-20); BUN (Urea Nitrogen) 7 mg/dL (7.0-18.7); Bilirubin, Total 0.4 mg/dL (0.3-1.2); Calc. Creatinine Clearance 0 mL/min (70-130); Calcium 9.2 mg/dL (7.8-10.44); Carbon Dioxide 20 mmol/L (22-29); Chloride 110 mmol/L (98-107); Globulin 3.5 g/dL (2.4-3.5); Glucose 97 mg/dL (70-105); Lipase 33 U/L (8-78); Potassium 3.4 mmol/L (3.5-5.1); Sodium 140 mmol/L (136-145)
[2025-09-13] MEDS ORDERED: Dicyclomine 20 MG TAB ONE (07:21)
[2025-09-13] MEDS ORDERED: Ketorolac Tromethamine 30 MG (1 mL) VIAL ONE (07:22)
[2025-09-13 07:36] LABS: ALT (SGPT) 14 U/L (Less than 34)
[2025-09-14 00:58] LABS: Campy jejuni + coli by PCR Negative (Negative); STEC Shiga Toxin 1+2 Negative (Negative); Salmonella spp. by PCR Negative (Negative); Shigella spp + EIEC by PCR Negative (Negative)
== END 2025-09-13 08:52 | disposition home or self-care (01) ==
LOC: CSHERS 05:53
DX: R10.9 Unspecified abdominal pain (principal); R19.7 Diarrhea, unspecified; F17.290 Nicotine dependence, other tobacco product, uncomplicated; Z55.6 Problems related to health literacy
CPT/HCPCS: 80053; 83690; 85025; 87324; 87449; 87505; 96361; 96374; 96375; J1630; J1885; J2272

== ENCOUNTER 2025-10-23 10:21 | Emergency (ER) | payer OTHER ==
[2025-10-23 11:21] LABS: Glucose, Urine (Dipstick) Normal (Negative); Leukocyte Negative (Negative); Protein, Urine (Dipstick) Negative (Neg-Trace); Specific Gravity, Urine 1.015 (1.005-1.030)
[2025-10-23 11:23] LABS: Pregnancy Test - Urine (BHCG) Negative (Negative); Pregu Control Background? CLEAR/WHITE (CLR/WHITE); Pregu Control Bar Appear? YES (CONTROL BAR)
[2025-10-23 11:25] LABS: #Basophils 0.04 10x3/uL (0.0-0.2); #Eosinophils 0.07 10x3/uL (0.0-0.5); #Monocytes 0.78 10x3/uL (0.0-1.1); #Neutrophils 3.44 10x3/uL (1.5-8.4); %Basophils 0.6 % (0.0-2.0); %Eosinophils 1.1 % (0.0-6.0); %Lymphocytes 30.1 % (18.0-47.0); %Monocytes 12.5 % (0.0-10.0); %Neutrophils 55.4 % (40.0-75.0); Hematocrit 32.6 % (34.9-44.5); Hemoglobin 10.2 g/dL (12.0-15.5); Mean Corpuscular Hemoglobin 26.6 pg (27.0-33.0); Mean Corpuscular Volume 84.9 fL (81.6-98.3); Platelet Count 281 10x3/uL (150-450); Red Blood Cell (RBC) Count 3.84 10x6/uL (3.90-5.03); White Blood Cell (WBC) Count 6.22 10x3/uL (3.5-10.5)
[2025-10-23 11:32] LABS: Bacteria/HPF 3+ HPF (None Seen); CAUTI Indications for Culture Pelvic or flank pain; Mucous/LPF 1+ LPF (<2+); RBC/HPF None Seen HPF (0-3); Urine Culture Reflex No No; WBC/HPF 0-3 HPF (0-3)
[2025-10-23 11:36] LABS: ALT (SGPT) 7 U/L (Less than 34); AST (SGOT) 12 U/L (11-34); Albumin 3.8 g/dL (3.1-4.5); Alkaline Phosphatase 61 U/L (40-110); Anion Gap 11 mmol/L (10-20); BUN (Urea Nitrogen) 11 mg/dL (7.0-18.7); Bilirubin, Total 0.3 mg/dL (0.3-1.2); Calc. Creatinine Clearance 0 mL/min (70-130); Calcium 9.5 mg/dL (7.8-10.44); Carbon Dioxide 24 mmol/L (22-29); Chloride 107 mmol/L (98-107); Globulin 3.3 g/dL (2.4-3.5); Glucose 92 mg/dL (70-105); Lipase 23 U/L (8-78); Potassium 4.1 mmol/L (3.5-5.1); Sodium 138 mmol/L (136-145)
[2025-10-23] MEDS ORDERED: Ketorolac Tromethamine 30 MG (1 mL) VIAL ONE (13:06)
== END 2025-10-23 14:34 | disposition home or self-care (01) ==
LOC: CSHERS 10:21
DX: N83.201 Unspecified ovarian cyst, right side (principal); Z55.6 Problems related to health literacy
CPT/HCPCS: 36415; 76856; 80053; 81001; 81025; 83690; 85025; 93976; 96372; J1885